=== PATIENT | male | born 1985 | race Two or more races ===

== ENCOUNTER 2020-11-04 23:29 | Emergency (ER) | payer OTHER ==
[2020-11-04 23:36] VITALS: TEMP 98.1
--- NOTE | 2020-11-04 23:54 | ED ---
Extremity Problem HPI - General Chief complaint: Extremity Problem,Nontraumatic Stated complaint: Leg Pain/Swelling Time Seen by Provider: 11/04/20 23:33 Source: patient Mode of arrival: ambulatory Limitations: no limitations - History of Present Illness Initial comments: 35yo male presenting for cc of leg pain, swelling. pt states that he had pain in his anterior left knee that last about a day approximately 3-4 days ago he states that the past two days he felt like his left leg was more swollen then the right and he had a cramping sensation in his left calf. He states that he did fall two hours prior to arrival but states that he did "hurt anything" and the pain that he is coming in for evaluation is unrealted. he states that he would like to make sure he has no blood clots. dneies chest pain, dyspnea, dypsnea on exertion, denies difficulty lying flat, cough, night time cough, scrotal swelling or b/l leg swelling. Patient appears well, no distress on arrival. - Related Data Previous Rx's Medication Instructions Recorded Ibuprofen 600 mg PO Q8H 7 Days #21 tab 11/05/20 Allergies Allergy/AdvReac Type Severity Reaction Status Date / Time No Known Allergies Allergy Verified 11/04/20 23:36 Review of Systems ROS Statement: Those systems with pertinent positive or pertinent negative responses have been documented in the HPI. ROS Other: All systems not noted in ROS Statement are negative. Past Medical History Past Medical History: No Reported History History of Any Multi-Drug Resistant Organisms: None Reported Past Surgical History: No Surgical Hx Reported Past Psychological History: No Psychological Hx Reported Smoking Status: Current every day smoker Past Alcohol Use History: Occasional Past Drug Use History: Marijuana General Exam - General Exam Comments Initial Comments: General: The patient is awake and alert, in no distress, and does not appear acutely ill. Eye: Pupils are equal, round and reactive to light, extra-ocular movements are intact. No nystagmus. There is normal conjunctiva bilaterally. No signs of icterus. Cardiovascular: There is a regular rate and rhythm. No murmur, rub or gallop is appreciated. Respiratory: Lungs are clear to auscultation, respirations are non-labored, breath sounds are equal. No wheezes, stridor, rales, or rhonchi. Musculoskeletal: potential patient of the medial aspect of the left knee no redness, mild calf pain. Normal ROM, no tenderness. Strength 5/5. Sensation intact. DP pulses equal bilaterally 2+. Neurological: A&O x 3. CN II-XII intact, There are no obvious motor or sensory deficits. Coordination appears grossly intact. Speech is normal. Skin: Skin is warm and dry and no rashes or lesions are noted. Psychiatric: Cooperative, appropriate mood & affect, normal judgment. Limitations: no limitations Course Vital Signs 11/04/20 11/05/20 23:34 01:52 Temperature 98.1 F Pulse Rate 105 H 74 Respiratory 16 20 Rate Blood Pressure 144/75 126/81 O2 Sat by Pulse 98 96 Oximetry Medical Decision Making - Medical Decision Making provisional venous thrombosis of the left lower leg. In the area patient was having tenderness. There are no skin changes no fevers. Patient denies any chest pain, dyspnea or pain with deep inspiration. There is no evidence of deep venous thrombosis. No evidence of overlying cellulitis at this time I recommended NSAIDs compression leg elevation and follow-up with primary care provider. Patient is agreeable to this care plan as well as attending provider patient is discharged appearing well Disposition Clinical Impression: Acute superficial venous thrombosis of left lower extremity Disposition: HOME SELF-CARE Condition: Good Instructions (If sedation given, give patient instructions): Superficial Thrombophlebitis (ED) Additional Instructions: Please use medication as discussed. Please follow-up with family doctor in the next 2 days. Please return to emergency room if the symptoms increase or worsen or for any other concerns. Prescriptions: Ibuprofen 600 mg PO Q8H 7 Days #21 tab Is patient prescribed a controlled substance at d/c from ED?: No Referrals: None,Stated [Primary Care Provider] [facility]2 [facility] Time of Disposition: 01:37
--- NOTE | 2020-11-05 00:56 | XR ---
EXAM: XR Left Knee, 3 Views CLINICAL HISTORY: Left knee pain. TECHNIQUE: Three views of the left knee. COMPARISON: No previous studies. FINDINGS: Bones/joints: Mild osteoarthritic changes about the left knee joint, most notably the patellofemoral joint. No acute fracture or dislocation or destructive process appeared 0.8 cm bone island proximal tibia. Soft tissues: Unremarkable. IMPRESSION: 1. Mild osteoarthritic changes about the left knee joint. 2. No acute fracture or dislocation. 3. If there is continued concern, magnetic resonance imaging may provide additional information.
--- NOTE | 2020-11-05 01:32 | US ---
EXAM: US Duplex Left Lower Extremity Veins CLINICAL HISTORY: ITS.REASON US Reason: swelling pain TECHNIQUE: Real-time duplex ultrasound scan of the left lower extremity veins integrating B-mode two-dimensional vascular structure, Doppler spectral analysis, color flow Doppler imaging and compression. COMPARISON: No previous studies. FINDINGS: Deep veins: Imaging of the left lower extremity deep venous system reveals no deep venous thrombosis including the left common femoral vein, left superficial femoral vein, the left popliteal vein, and left posterior tibial calf veins. Anterior tibial peroneal calf veins were not assessed. Superficial veins: Superficial venous thrombosis medial aspect of the left knee is noted. Soft tissues: Soft tissues are grossly unremarkable. No popliteal cyst. IMPRESSION: 1. There is superficial venous thrombosis about the medial aspect of the left knee. 2. No deep venous thrombosis about the left lower extremity. 3. Limited evaluation of the calf veins.
[2020-11-05 01:55] VITALS: PULSE 74; RESP 20
[2020-11-05 02:12] VITALS: BP 127/81
== END 2020-11-05 02:03 | disposition home or self-care (01) ==
LOC: EC 23:29
DX: I82.812 Embolism and thrombosis of superficial veins of left lower extremity (principal); F17.200 Nicotine dependence, unspecified, uncomplicated
CPT/HCPCS: 99284